=== PATIENT | female | born 1960 | race Caucasian/White ===

== ENCOUNTER 2019-02-13 07:13 | Day surgery (SDC) | payer OTHER ==
[~2019-02-13] VITALS: Ht 162.6 cm; Wt 73.5 kg
[2019-02-13] MEDS ORDERED: VITAMIN D50000 UNI1 PO (07:31)
--- NOTE | 2019-02-13 10:41 | NUR ---
02/13/19 1041 Ericka Corona SN 0840- PT ARRIVES IN PACU. RESPS EVEN AND UNLABROED. O2 SAT HIGH 90'S ON 2 L VIA NC. PT IS ASLEEP IN LEFT LATERAL POSITION WITH EYES CLOSED. PT DOES NOT AROUSE TO VERBAL STIMULIL. 0845- PT RESTING WITH EYES CLOSED. PT AROUSES TO VERBAL STIMULI AND TOUCH. RESPS EVEN AND UNLABOERD. PT REPORTS NO NAUSEA PAIN OR DIZZINESS AT THIS ITME. PT DOES REPORT THAT SHE FEELS DROWSY. PT IS PASSING FLATUS AT THIS TIME. 0855- 02 REMOVED. RESPS EVEN AND UNLABORED. O2 SAT MID TO HIGH 90S ON RA. TOLERATING WELL. PT DENIES PAIN NAUSEA DN DIZZINESS AT THIS TIME. 0900- PT EXPERIENCES PERIODS OF APNEA WHEN SHE FALLS ASLEEP, PT IS ABLE TO STIULATE HERSELF AWAKE AND BEGIN BREATHING ADEQUATELY. PT IS EDUCATED TO COUGH AND DEEP BREATHE AT THIS TIME. RESPS EVEN AND UNLABORED. 02 SAT MID TO HIGH 90S ON RA. PT DENIES PAIN NAUSEA AND DIZZINESS AT THIS TIME. 0912- PT CONTINUES TO HAVE PERIODIC BRADYPNEA. PT IS ABLE TO STIMULATE HERSELF TO BECOME MORE ALERT AND TO BREATHE ADEQUEATELY. RESPS EVEN AND UNLABORED. 02 SATS MID TO HIGH 90S ON RA. DENIES PAIN NAUSEA AND DIZZINESS AT THIS TIME. PT EDUCATED ON COUGHING AND DEEP BREAHTHING. RETURN DEMONSTRATION NOTED. 0920- PT SAT UP IN BED IN HIGH FOWLERS POSITION. TOLERATING WELL. PT PROVIDED WITH WATER REQUESTED, TOLERATING WELL. PT CONTINUES TO PASS FLATUS. PT REPORTS MILD CRAMPING, AND IS EDUCATED ON WAYS TO RELIEVE THIS. RESPS EVEN AND UNLABORED. 02 SAT HIGH 90S ON RA. DENIES PAIN NAUSEA AND DIZZINESS. 0926- PT SITTING UP ON EDGE OF BED. AT BEDSIDE. PT IS DRINKING WATER AND TOLERATING THIS WELL. PT IS ABLE TO HAVE APPROPRIATE CONVERSATIONS WITH STAFF AND AT THIS TIME. C02 MONITOR REMOVED AT THIS TIME. RESPS REMAIN EVEN AND UNLABORED. 02 SAT HIGH 90S ON RA. 0935- PT REMAINS SITTING ON EDGE OF BED, TOLERATING WELL. REPORTS NO DIZZINESS PAIN OR NAUSEA AT THIS TIME. 0943- PT GETTING DRESSED WITH AT THE BEDSIDE. TOLERATING WELL. DENIES PAIN NAUSEA OR DIZZINESS. 0950- PT OUT OF PACU. DISCHARGE INSTRUCTIONS GIVEN TO BOTH PT AND . ALL QUESTIONS ANSWERED. PT REPORTS MILD CRAMPING AT THIS TIME, AND IS EDUCATED ON IMPORTANCE OF PASSING FLATUS. TRANSFERRED TO FRONT OF HOSPTIAL VIA WC.
--- NOTE | 2019-02-13 18:36 | OR ---
[facility] [address] [place], [place] [address] Signed DATE OF OPERATION: 02/13/2019 SURGEON: Umer Marks MD PREOPERATIVE DIAGNOSES: 1. Mother with history of colon cancer in her 50s. 2. Personal history of hyperplastic colonic polyp 2013. 3. Left-sided diverticula x2. POSTOPERATIVE DIAGNOSES: 1. Minimal sigmoid diverticulosis. 2. Mild melanosis coli. PROCEDURE PERFORMED: Colonoscopy with cold biopsy x2. ESTIMATED BLOOD LOSS: None. INDICATIONS: Chidi is a 58-year-old female who presents for her followup colonoscopy. Her mother had developed colon cancer in her 50s. Chidi had a hyperplastic polyp removed in her colon in 2013. We had we saw just two diverticula when we went through her left colon. In the meantime, she says she is doing wonderful and has no lower GI complaints. I had met with Chidi in the office and I gave her a pamphlet on colonoscopy and we did review the nature of that test. She understands the risks including, but not limited to gas bloating, crampy abdominal pain, bleeding, perforation, requiring surgery, and missed diagnosis. We also discussed the need for IV conscious sedation. She had expressed understanding and wished to proceed. PROCEDURE NOTE: Chidi was taken into our endoscopy suite and placed in the left lateral decubitus position. She was given a total of 7 mg of Versed and 175 mcg of fentanyl to cover the case. A digital rectal exam was performed and this was unremarkable. The adult colonoscope was introduced and advanced under direct visualization of camera. She has a somewhat redundant and angulated sigmoid colon. On this occasion, we did see more diverticula. They were still minimal in number, but they were moderate in size. She has somewhat long redundant colon. It took just a bit to get around hepatic flexure. Consequently, we did have to use some extra Versed and fentanyl along with some abdominal compression. Nevertheless, her prep was quite excellent. We could easily see Electronically Signed By: UMER MARKS MD 02/13/19 1836 PATIENT NAME: CHIDI IBANEZ OPERATIVE REPORT DATE OF : 58 REPORT #: [id number] PHYSICIAN: UMER MARKS MD PCP: NATIVIDAD COOPER MD REPORT IS CONFIDENTIAL AND NOT TO BE RELEASED WITHOUT AUTHORIZATION [facility] [address] [place] [id number] Signed the appendiceal orifice the Crohn's foot and the ileocecal valve. We did take pictures throughout for photodocumentation. The adult colonoscope was then slowly withdrawn. No polyps noted on this occasion. The rectum was unremarkable. The scope was then retroflexed and there was no additional pathology noted above the anal canal. After this, the gas was suctioned out and the colonoscope removed. Chidi tolerated procedure overall well. If she has any recall of that procedure, she might consider propofol in the future. RECOMMENDATIONS: Chidi will follow up in my office in 7 to 14 days to review her results. We did see some tiger striping in the colon, so we took two random cold biopsies for pathologic review to evaluate for melanosis coli. Umer Marks MD ALB/MODL /[id number] cc: MD Umer Rosales MD Biana Manchik, MD Copies: PATRICIO CONKLIN MD, ANDREW L MD ~ Electronically Signed By: UMER MARKS MD 02/13/19 1836 PATIENT NAME: CHIDI IBANEZ OPERATIVE REPORT DATE OF : 58 REPORT #: [id number] PHYSICIAN: UMER MARKS MD PCP: NATIVIDAD COOPER MD REPORT IS CONFIDENTIAL AND NOT TO BE RELEASED WITHOUT AUTHORIZATION
== END 2019-02-13 09:50 | disposition home or self-care (01) ==
LOC: DS 07:13 → OPS 07:13 → DS 08:15 → OPS 08:15
PROVIDERS: Colon & Rectal Surgery
PROC: 0DBE8ZX Excision of Large Intestine, Via Natural or Artificial Opening Endoscopic, Diagnostic (ICD-10-PCS; principal; 2019-02-13 08:15)
DX: Z12.11 Encounter for screening for malignant neoplasm of colon (principal); K57.30 Diverticulosis of large intestine without perforation or abscess without bleeding; K63.89 Other specified diseases of intestine; Z86.010 Personal history of colon polyps; Z80.0 Family history of malignant neoplasm of digestive organs; Z88.2 Allergy status to sulfonamides
CPT/HCPCS: 99153; G0500; J2250; J3010; J7120

== ENCOUNTER 2020-02-02 08:38 | Emergency (ER) | payer OTHER ==
[~2020-02-02] VITALS: Ht 162.6 cm; Wt 74.4 kg
--- OUTSIDE RECORDS SUMMARY | ~2020-02-02 | XMS | Encounter Summary ---
Demographics + + + | Address | [address] | | | [place] [address] | + + + | Home Phone | | + + + | Preferred Language | Unknown | + + + | Marital Status | | + + + | Nondenominational Affiliation | 1041 | + + + | Race | Unknown | + + + | Ethnic Group | Unknown | + + + Author + + + | Author | [facility] | | | and Ashishana | + + + | Organization | [facility] | | | and Ashishana | + + + | Address | Unknown | + + + | Phone | Unavailable | + + + Support + + +---------+ + | Name | Relationship | Address | Phone | + + +---------+ + | Adria Baum | ECON | Unknown | | + + +---------+ + Care Team Providers + +------+ + | Care Zookeeper Name | Role | Phone | + +------+ + | No, Physician | PCP | Unavailable | + +------+ + Reason for Visit + + + | Reason | Comments | + + + | Financial Counseling | Estimate /prepayment | + + + Encounter Details +--------+ + + + + | Date | Type | Department | Care Team | Description | +--------+ + + + + | 10/29/ | Telephone | [facility] | Nahid Guevara, | Financial Counseling | | 2020 | | [facility] | [address] | (Estimate | | | | MEDICINE OPAL | [place] [address] | /prepayment ) | | | | [address] | [phone] | | | | | [place], [place] | | | | | | [address] | | | | | | [phone] | | | +--------+ + + + + Social History + +-------+ +--------+------+ | Tobacco Use | Types | Packs/Day | Years | Date | | | | | Used | | + +-------+ +--------+------+ | Never Smoker | | | | | + +-------+ +--------+------+ + +---+---+---+ | Smokeless Tobacco: | | | | | Never Used | | | | + +---+---+---+ + + +---------+ + | Alcohol Use | Drinks/Week | oz/Week | Comments | + + +---------+ + | Yes | | | | + + +---------+ + + + + + | Alcohol Habits | Answer | Date Recorded | + + + + | How often do you have a drink containing | Not asked | | | alcohol? | | | + + + + | How many drinks containing alcohol do you | 1 or 2 | 10/28/2019 | | have on a typical day when you are | | | | drinking? | | | + + + + | How often do you have six or more drinks on | Daily or almost daily | 10/28/2019 | | one occasion? | | | + + + + + + + | Sex Assigned at | Date Recorded | | | | + + + | Not on file | | + + + + + + + | Job Start Date | Occupation | Industry | + + + + | Not on file | Not on file | Not on file | + + + + + + + + | Travel History | Travel Start | Travel End | + + + + + + | No recent travel history available. | + + documented as of this encounter Plan of Treatment Not on filedocumented as of this encounter Visit Diagnoses Not on filedocumented in this encounter"
--- OUTSIDE RECORDS SUMMARY | ~2020-02-02 | XMS | Encounter Summary ---
Demographics + + + | Address | [address] | | | [place] [address] | + + + | Home Phone | | + + + | Preferred Language | Unknown | + + + | Marital Status | | + + + | Pentecostalism Affiliation | 1041 | + + + | Race | Unknown | + + + | Ethnic Group | Unknown | + + + Author + + + | Author | [facility] | | | and Ashishana | + + + | Organization | [facility] | | | and Ashishana | [...] Team Providers + +------+ + | Care Software Test Developer Name | Role | Phone | + [...] + + | 10/29/ | Telephone | [facility] | Nahid Guevara, | Financial Counseling | | 2020 | | [facility] | [address] | (Estimate | | | | MEDICINE OPAL | [place] [address] | /prepayment ) | | | | [address] | [phone] | | | | | [place], [place] | | | | | | [address] | | | | | | [phone] | | | +--------+ + + + [...]
--- OUTSIDE RECORDS SUMMARY | ~2020-02-02 | XMS | Encounter Summary ---
Demographics + + + | Address | [address] | | | [place] [address] | + + + | Home Phone | | + + + | Preferred Language | Unknown | + + + | Marital Status | | + + + | Anabaptist Affiliation | 1041 | + + + | Race | Unknown | + + + | Ethnic Group | Unknown | + + + Author + + + | Author | [facility] | | | and Ashishana | + + + | Organization | [facility] | | | and Ashishana [...] Team Providers + +------+ + | Care Hairpiece Stylist Name | Role | Phone | + +------+ + | No, Physician | PCP | Unavailable | + +------+ + Reason for Visit Evaluate & Treat (Routine) + +--------+ + + + + | Status | Reason | Specialty | Diagnoses / | Referred By | Referred To | | | | | Procedures | Contact | Contact | + +--------+ + + + + | Authorized | | Orthopedic | Diagnoses | Chucky | Ismael, | | | | Surgery | | DO Tayo | Nahid Fuentes MD | | | | | [place], | [address] | [address] | | | | | right hand | [address] | [place], | | | | | | [address] | [place] [address] | | | | | | [place], | Phone: | | | | | | [place] | [phone] | | | | | | [address] | Fax: | | | | | | Phone: | [phone] | | | | | | [phone] | | | | | | | Fax: | | | | | | | [phone] | | + +--------+ + + + + Encounter Details +--------+---------+ + + + | Date | Type | Department | Care Team | Description | +--------+---------+ + + + | 11/17/ | Office | [facility] | Nahid Guevara, | Ravi | | 2020 | Visit | [facility] | [address] | contracture (Primary | | | | MEDICINE OPAL | [place] [address] | Dx) | | | | [address] | [phone] | | | | | [place] | | | | | | [address] | | | | | | [phone] | | | +--------+---------+ + + + Social History + +-------+ [...] + + documented as of this encounter Last Filed Vital Signs + + + + + | Vital Sign | Reading | Time Taken | Comments | + + + + + | Blood Pressure | 124/60 | 11/17/2019 10:49 AM | | | | | PST | | + + + + + | Pulse | 78 | 11/17/2019 10:49 AM | | | | | PST | | + + + + + | Temperature | - | - | | + + + + + | Respiratory Rate | 16 | 11/17/2019 10:49 AM | | | | | PST | | + + + + + | Oxygen Saturation | - | - | | + + + + + | Inhaled Oxygen | - | - | | | Concentration | | | | + + + + + | Weight | 74.8 kg (165 lb) | 11/17/2019 10:49 AM | | | | | PST | | + + + + + | Height | 162.6 cm (5' 4") | 11/17/2019 10:49 AM | | | | | PST | | + + + + + | Body Mass Index | 28.32 | 11/17/2019 10:49 AM | | | | | PST | | + + + + + documented in this encounter Progress Notes Nahid Guevara MD - 11/17/2019 10:45 AM PSTFormatting of this note might be different fro m the original. [facility]: Orthopedic Surgery Patient Name:Skylar Baum AGE: 59 y.o. :1960 CHIEF COMPLAINT: postop HPI HISTORY OF PRESENT ILLNESS Patient overall doing well. No complications noted. No signs of infection. 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 Authorizing Provider Cholecalciferol (VITAMIN D3 PO) Take by mouth. Historical Provider, CINNAMON PO Take by mouth. Historical Provider, HYDROcodone-acetaminophen (NORCO) 5-325 mg per tablet Take 1 tablet by mouth every 4 hours as needed. 11/04/19 Nahid Guevara MD HYDROcodone-acetaminophen (NORCO) 5-325 mg per tablet Take 1 tablet by mouth every 4 hours as needed. 11/04/19 Nahid Guevara MD ondansetron (ZOFRAN ODT) 4 mg disintegrating tablet Take 1 tablet by mouth every 8 hours as needed for Nausea. 11/04/19 Nahid Guevara MD ondansetron (ZOFRAN ODT) 4 mg disintegrating tablet Take 1 tablet by mouth every 8 hours as needed for Nausea. 11/04/19 Nahid Guevara MD No family history on file. Social History Socioeconomic History Marital status: Spouse name: Not on file Number of children: Not on file Years of education: Not on file Highest education level: Not on file Occupational History Not on file Social Needs Financial resource strain: Not on file Food insecurity: Worry: Not on file Inability: Not on file Transportation needs: Medical: Not on file Non-medical: Not on file Tobacco Use Smoking status: Never Smoker Smokeless tobacco: Never Used Substance and Sexual Activity Alcohol use: Yes Drinks per session: 1 or 2 Binge frequency: Daily or almost daily Drug use: Never Sexual activity: Not on file Lifestyle Physical activity: Days per week: Not on file Minutes per session: Not on file Stress: Not on file Relationships Social connections: Talks on phone: Not on file Gets together: Not on file Attends mormon service: Not on file Active member of club or organization: Not on file Attends meetings of clubs or organizations: Not on file Relationship status: Not on file Intimate partner violence: Fear of current or ex partner: Not on file Emotionally abused: Not on file Physically abused: Not on file Forced sexual activity: Not on file Other Topics Concern Not on file Social History Narrative Not on file PHYSICAL EXAM Vital Signs: BP 124/60 | Pulse 78 | Resp 16 | Ht 1.626 m (5' 4") | Wt 74.8 kg (165 lb) | BMI 28.32 kg/m Physical Exam Ortho Exam Wound healed Neurovascularly intact, Motor and sensation grossly intact Brisk cap refill 2+ pulses No signs of complication PROBLEM LIST Encounter Diagnosis Name Primary? Dupuytren contracture Yes ASSESSMENT & PLAN Gradual return to activity Scar tissue massage All questions answered Return in 2-3 months @[email or web address]@ Primary Care Physician: No Physician on file Nahid Guevara MD This document has been prepared with [email or web address] voice recognition system. The possibility of "s ound alike" clearing supervisor errors, and additions, or deletions may occur. If there is any que stion with respect to clarity of the message being conveyed, please contact me directly for clarification. documented in this en counter Plan of Treatment Not on filedocumented as of this encounter Visit Diagnoses + + | Diagnosis | + + | Dupuytren contracture - Primary Contracture of palmar fascia | + + documented in this encounter
--- OUTSIDE RECORDS SUMMARY | ~2020-02-02 | XMS | Encounter Summary ---
Demographics + + + | Address | [address] | | | [place] [address] | + + + | Home Phone | | + + + | Preferred Language | Unknown | + + + | Marital Status | | + + + | Congregation Affiliation | 1041 | + + + | Race | Unknown | + + + | Ethnic Group | Unknown | + + + Author + + + | Author | [facility] | | | and Ashishana | + + + | Organization | [facility] | | | and Ashishana [...] Team Providers + +------+ + | Care Grooving Machine Operator Name | Role | Phone | + +------+ + PCP | Unavailable | + +------+ + Encounter Details +--------+ + + + + | Date | Type | Department | Care Team | Description | +--------+ + + + + | 01/25/ | Hospital | [facility] | | | | 1992 - | Encounter | [facility] | | | | | | [facility] [address] | | | | 01/28/ | | [place], | | | | 1992 | | [place] [address] | | | | | | [phone] | | | +--------+ + + + + Social History + +-------+ +--------+------+ | Tobacco Use | Types | Packs/Day | Years | Date | | | | | Used | | + +-------+ +--------+------+ | Never Assessed | | | | | + +-------+ +--------+------+ + + + | Sex Assigned at [...]
--- OUTSIDE RECORDS SUMMARY | ~2020-02-02 | XMS | Encounter Summary ---
Demographics + + + | Address | [address] | | | [place] [address] | + + + | Home Phone | | + + + | Preferred Language | Unknown | + + + | Marital Status | | + + + | Nondenominational Affiliation | 1041 | + + + | Race | Unknown | + + + | Ethnic Group | Unknown | + + + Author + + + | Author | [facility] | | | and Ashishana | + + + | Organization | [facility] | | | and Ashishana [...] Team Providers + +------+ + | Care Atg Architect Name | Role | Phone | + +------+ + | No, Physician | PCP | Unavailable | + +------+ + Reason for Visit Auth/Cert +--------+--------+ + + + + | Status | Reason | Specialty | Diagnoses / | Referred By | Referred To | | | | | Procedures | Contact | Contact | +--------+--------+ + + + + | | | | Diagnoses | | Ismael | | | | | Ravi | | Nahid Fuentes MD | | | | | contracture | | [address] | | | | | Procedures | | [facility], | | | | | [place] | | [place] [address] | | | | | FASCIECTOMY | | Phone: | | | | | RIGHT INDEX | | [phone] | | | | | AND RING | | Fax: | | | | | FINGER | | [phone] | | | | | DUPUYTRENS | | | | | | | FASCIECTOMY | | | +--------+--------+ + + + + Encounter Details +--------+ + + + + | Date | Type | Department | Care Team | Description | +--------+ + + + + | 11/04/ | Hospital | [facility] | | Ravi | | 2020 | [facility] | | contracture | | | | OPAL ASC INTRA | | | | | | [address] | | | | | | [place], [place] | | | | | | [address] | | | | | | [phone] | | | +--------+ + + + [...] + + + | Blood Pressure | 126/76 | 11/04/2019 2:20 PM | | | | | PST | | + + + + + | Pulse | 48 | 11/04/2019 2:20 PM | | | | | PST | | + + + + + | Temperature | 36.3 C (97.3 F) | 11/04/2019 2:00 PM | | | | | PST | | + + + + + | Respiratory Rate | 16 | 11/04/2019 2:00 PM | | | | | PST | | + + + + + | Oxygen Saturation | 97% | 11/04/2019 2:20 PM | | | | | PST | | + + + + + | Inhaled Oxygen | - | - | | | Concentration | | | | + + + + + | Weight | 75.1 kg (165 lb 9.6 | 11/04/2019 1:02 PM | | | | oz) | PST | | + + + + + | Height | 162.6 cm (5' 4") | 11/04/2019 1:02 PM | | | | | PST | | + + + + + | Body Mass Index | 28.43 | 11/04/2019 1:02 PM | | | | | PST | | + + + + + documented in this encounter Discharge Summaries Nahid Guevara MD - 11/04/2019 12:30 PM [facility] Same Day Surgery: Brief Post Op Discharge Note Post Procedure Discharge Note; See Operative Note for details Skylar Baum Age/Gender 59 y.o. female Location [facility] OPAL ASC INTRA OP Attending No att. providers found Hosp Day # 0 PCP No Physician on file Discharge Date: 11/04/2019 Hospital Problem List: Principal Problem: Dupuytren contracture Final Diagnosis: [facility] OP[facility] ASC Pt. Name/Age/: Skylar Baum 59 y.o. 1960 Med. Record Number: [id number] Date of admission: 11/04/2019 Date of Operation/Procedure: 11/04/2019 Pre-operative Diagnosis: Right index finger Dupuytren's disease Right ring finger Dupuytren's disease Post-operative Diagnosis: same Procedure(s): 1. Right index finger fasciectomy, CPT 98734 2. Right ring finger fasciectomy, CPT 87907 Surgeon: Nahid Guevara MD Him Specialists(s): None Anesthesia:, General mask inhalational anesthesia and IV regional Estimated Blood Loss: Minimal Other: Not applicable Indications: See pre-operative history and physical Findings: As above Complications: None Description of Procedure: See op note Condition: stable Discharge Meds: Resume pre-admit medications without exceptions or additions See Orders Discharge Instructions: See separate Discharge Instruction document; provided to patient/f amily See discharge orders Disposition: home Follow-Up: No follow-up provider specified. Condition at Discharge: She will be discharged when she is ready per nursing protocol. See nursing notes regarding actual condition at discharge. Nahid Guevara MD 2:09 PM; 11/04/2019 cc: documented in this en counter Discharge Instructions Instructions Kelsea Monroy RN - 11/04/2019Nahid Guevara MD Postoperative Instru ctions As you recover from surgery here are instructions to aid the healing process and keep you s afe. Diet Regular diet, or your diet specified by your primary care provider. Begin with paul ar liquids and advance to solids as you tolerate. No alcoholic beverages on the day of surge ry. Also, please AVOID smoking as this can significantly delay the healing process. Activity Keep the operative extremity above the level of your heart for the next 5 days . Please avoid shoulder slings as these place your hand/wrist below the level of your heart BLOCK MAY LAST AROUND 10-12 HOURS; USE SLING UNTIL ELBOW CONTROL RETURNS THEN DISCARD Dressing/Surgery site Please keep your dressing clean and dry. You may remove your dressing in 3 days (Sunday). You may shower tomorrow but please keep your wound/dressing covered and dry Pain medicine Take pain medicine PRN or as needed. Try to wean yourself gradually off pain medicine over several days. Do NOT drink alcohol or take sleeping medicines while on narcotics. You should take pain medicine with food to avoid nausea. In addition, pain med icine may cause constipation. Please drink plenty of fluids and take a laxative of your low ce (over the counter) as needed. After surgery Slight swelling, pain and some bruising may occur after surgery. Please contact my office if any of the following occur: sustained temperature over 101.5?F, excessi ve bleeding, rapidly increasing numbness, inability to urinate within 8 hours, progressively increasing pain not relieved by pain medicines, signs of a wound infection (increased redne ss, swelling, pus drainage), or excessive swelling/tightness. Office appointment Please return to my office in 10-14 days for a dressing change. Call with any questions or to schedule/re-schedule an appointment. I look forward to seeing you. Provision for after-hours and emergency care: If you have an emergency such as chest pain or shortness of breath please call . If you need the doctor after hours or on the weekends, please refer to the phone number bel ow. For [facility] offices located on [address] [facility] and on [address] [place] [address] please call . This will take you to an answering service, who will then get you in contact with a medical professional. documented in this encounter Medications at Time of Discharge + + + +---------+ + + | Medication | Sig | Dispensed | Refills | Start | End Date | | | | | | Date | | + + + +---------+ + + | Cholecalciferol | Take by mouth. | | 0 | | | | (VITAMIN D3 PO) | | | | | | + + + +---------+ + + | CINNAMON PO | Take by mouth. | | 0 | | | + + + +---------+ + + | | Take 1 tablet by | 10 | 0 | 11/04/19 | | | HYDROcodone-acetamin | mouth every 4 hours | tablet | | 20 | | | ophen (NORCO) 5-325 | as needed. | | | | | | mg per tablet | | | | | | + + + +---------+ + + | | Take 1 tablet by | 10 | 0 | 11/04/20 | | | HYDROcodone-acetamin | mouth every 4 hours | tablet | | 20 | | | ophen (NORCO) 5-325 | as needed. | | | | | | mg per tablet | | | | | | + + + +---------+ + + | ondansetron | Take 1 tablet by | 24 | 0 | 20 | | | (ZOFRAN ODT) 4 mg | mouth every 8 hours | tablet | | 20 | | | disintegrating | as needed for | | | | | | tablet | Nausea. | | | | | + + + +---------+ + + | ondansetron | Take 1 tablet by | 24 | 0 | //20 | | | (ZOFRAN ODT) 4 mg | mouth every 8 hours | tablet | | 20 | | | disintegrating | as needed for | | | | | | tablet | Nausea. | | | | | + + + +---------+ + + documented as of this encounter Progress Notes Kelsea Monroy RN - 11/04/2019 2:24 PM PSTPrescription Rx and discharge information given to , at bedside, all questions answered. documented in th is encounter Plan of Treatment + +---------+--------+ + + | Name | Type | Priori | Associated Diagnoses | Date/Time | | | | ty | | | + +---------+--------+ + + | STORED IMAGE | Imaging | Routin | | 11/04/2019 3:41 PM | | ANESTHESIA | | e | | PST | + +---------+--------+ + + + +---------+--------+ + + | Name | Type | Priori | Associated Diagnoses | Order Schedule | | | | ty | | | + +---------+--------+ + + | STORED IMAGE | Imaging | Routin | | One time imaging One | | ANESTHESIA | | e | | time imaging for 1 | | | | | | Occurrences starting | | | | | | 11/04/2019 until | | | | | | 11/04/2019 | + +---------+--------+ + + documented as of this encounter Procedures + +--------+ + + + | Procedure Name | Priori | Date/Time | Associated Diagnosis | Comments | | | ty | | | | + +--------+ + + + | RELEASE TENDON | | 11/04/2019 | Dupuytren | | | DEQUERVAINS | | 1:27 PM | contracture | | | | | PST | | | + +--------+ + + + +---+--------+ | | Case | | | Notes | | | | | | RIGHT | | | INDEX | | | AND | | | RING | | | FINGER | | | | | | DUPUYT | | | RENS | | | FASCIE | | | CTOMY | +---+--------+ documented in this encounter Visit Diagnoses + + | Diagnosis | + + | Dupuytren contracture Contracture of palmar fascia | + + documented in this encounter Admitting Diagnoses + + | Diagnosis | + + | Dupuytren contracture Contracture of palmar fascia | + + documented in this encounter Administered Medications + +--------+---------+------+------+------+ | Medication Order | MAR | Action | Dose | Rate | Site | | | Action | Date | | | | + +--------+---------+------+------+------+ + +---+ | fentaNYL (PF) 50 mcg/mL | | | injection Starting 11/04/19 | | | at 1318, For 1 dose, Naseem, | | | Antionette: félixt override, | | + +---+ | | | + +---+ + +-------+ +--------+---+---+ | fentaNYL (PF) injection 50-100 | Given | 11/04/19 | 50 mcg | | | | mcg 50-100 mcg, Intravenous, | | 20 1:20 | | | | | ONCE, 11/04/19 at 1315, For 1 | | PM PST | | | | | dose, Pre-op | | | | | | + +-------+ +--------+---+---+ +---+---+ | | | +---+---+ + +---------+ +---+ +---+ | lactated ringers (LR) infusion | New Bag | 11/04/19 | | 30 mL/hr | | | at 10-100 mL/hr, Intravenous, | | 20 1:15 | | | | | CONTINUOUS, Starting 11/04/19 | | PM PST | | | | | at 1315, TKO., Pre-op | | | | | | + +---------+ +---+ +---+ +---+---+ | | | +---+---+ + +-------+ +---------+---+ + | lidocaine (PF) 1% injection 0.5 | Given | 11/04/19 | 0.5 mLs | | Arm-Left | | mL 0.5 mL, Intradermal, ONCE, | | 20 1:15 | | | Lower | | 11/04/19 at 1315, For 1 dose, | | PM PST | | | | | For Peripheral IV start, Pre-op | | | | | | + +-------+ +---------+---+ + +---+---+ | | | +---+---+ + +-------+ +------+---+---+ | midazolam (VERSED) 1 mg/mL | Given | 11/04/19 | 1 mg | | | | injection 1-2 mg 1-2 mg, | | 20 1:20 | | | | | Intravenous, ONCE, 11/04/19 at | | PM PST | | | | | 1315, For 1 dose, Pre-op | | | | | | + +-------+ +------+---+---+ + +---+ | | | + +---+ | midazolam (VERSED) 1 mg/mL | | | injection Starting 11/04/19 | | | at 1318, For 1 dose, Naseem, | | | Antionette: na paulino, | | + +---+ | | | + +---+ documented in this encounter
--- OUTSIDE RECORDS SUMMARY | ~2020-02-02 | XMS | Encounter Summary ---
Demographics + + + | Address | [address] | | | [place] [address] | + + + | Home Phone | | + + + | Preferred Language | Unknown | + + + | Marital Status | | + + + | Scientologist Affiliation | 1041 | + + + | Race | Unknown | + + + | Ethnic Group | Unknown | + + + Author + + + | Author | [facility] | | | and Ashishana | + + + | Organization | [facility] | | | and Ashishana [...] Team Providers + +------+ + | Care Zigzag Machine Operator Name | Role | Phone | + +------+ + | No, Physician | PCP | Unavailable | + +------+ + Encounter Details +--------+ + + + + | Date | Type | Department | Care Team | Description | +--------+ + + + + | 10/28/ | Preadmit | [facility] | | | | 2019 | Visit | [facility] | | | | | | [facility]AL [facility] | | | | | | [facility] | | | | | | [address] | | | | | | [place] | | | | | | [address] | | | | | | [phone] | | | +--------+ + + + [...] + + + | Blood Pressure | - | - | | + + + + + | Pulse | - | - | | + + + + + | Temperature | - | - | | + + + + + | Respiratory Rate | - | - | | + + + + + | Oxygen Saturation | - | - | | + + + + + | Inhaled Oxygen | - | - | | | Concentration | | | | + + + + + | Weight | 72.6 kg (160 lb) | 10/28/2019 10:21 AM | | | | | PST | | + + + + + | Height | 162.6 cm (5' 4") | 10/28/2019 10:21 AM | | | | | PST | | + + + + + | Body Mass Index | 27.46 | 10/28/2019 10:21 AM | | | | | PST | | + + + + + documented in this encounter Plan of Treatment Not on filedocumented as of this encounter Visit Diagnoses Not on filedocumented in this encounter
--- OUTSIDE RECORDS SUMMARY | ~2020-02-02 | XMS | Encounter Summary ---
Demographics + + + | Address | [address] | | | [place] [address] | + + + | Home Phone | | + + + | Preferred Language | Unknown | + + + | Marital Status | | + + + | Presybeterian Affiliation | 1041 | + + + | Race | Unknown | + + + | Ethnic Group | Unknown | + + + Author + + + | Author | [facility] | | | and Ashishana | + + + | Organization | [facility] | | | and [...] Team Providers + +------+ + | Care Emt I/99 Name | Role | Phone | + +------+ + PCP | Unavailable | + +------+ + Encounter Details +--------+ + + + + | Date | Type | Department | Care Team | Description | +--------+ + + + + | 01/25/ | Hospital | [facility] | | | | 1992 - | Encounter | [facility] | | | | | | [facility] [address] | | | | 01/28/ | | [place], | | | | 1993 | | [place] [address] | | | | | | [phone] | | | +--------+ + + + [...]
--- OUTSIDE RECORDS SUMMARY | ~2020-02-02 | XMS | Encounter Summary ---
Demographics + + + | Address | [address] | | | [place] [address] | + + + | Home Phone | | + + + | Preferred Language | Unknown | + + + | Marital Status | | + + + | Scientology Affiliation | 1041 | + + + | Race | Unknown | + + + | Ethnic Group | Unknown | + + + Author + + + | Author | [facility] | | | and Ashishana | + + + | Organization | [facility] | | | and Ashishana | [...] Team Providers + +------+ + | Care Plastic Roller Name | Role | Phone | + [...] right hand | [address] | [place], | | | | | | [address] | [place] [address] | | | | | | [place], | Phone: | | | | | | [place] | [phone] | | | | | | [address] | Fax: | | | | | | Phone: | [phone] | | | | | | [phone] | | | | | | | Fax: | | | | | | | [phone] | | + +--------+ + + + + Encounter Details +--------+---------+ + + + | Date | Type | Department | Care Team | Description | +--------+---------+ + + + | 11/17/ | Office | [facility] | Nahid Guevara, | Ravi | | 2020 | Visit | [facility] | [address] | contracture (Primary | | | | MEDICINE OPAL | [place] [address] | Dx) | | | | [address] | [phone] | | | | | [place] | | | | | | [address] | | | | | | [phone] | | | +--------+---------+ + + + [...] might be different fro m the original. [facility]: Orthopedic Surgery Patient Name:Skylar Baum [...] FINGER DUPUYTRENS FASCIECTOMY; Surgeon: Raheem Moya; [place] [facility] [place] Allergies Allergen Reactions Uncoded Nonscreenable Allergen Rash [...] file Gets together: Not on file Attends protestant service: Not on file Active member of [...] MD This document has been prepared with [employer] voice recognition system. The possibility of "s ound alike" oral surgeon errors, and additions, or deletions may occur. [...]
--- OUTSIDE RECORDS SUMMARY | ~2020-02-02 | XMS | Encounter Summary ---
Demographics + + + | Address | [address] | | | [place] [address] | + + + | Home Phone | | + + + | Preferred Language | Unknown | + + + | Marital Status | | + + + | Spiritism Affiliation | 1041 | + + + | Race | Unknown | + + + | Ethnic Group | Unknown | + + + Author + + + | Author | [facility] | | | and Ashishana | + + + | Organization | [facility] | | | and Ashishana | [...] Team Providers + +------+ + | Care Banking Representative Name | Role | Phone | + +------+ + | No, Physician | PCP | Unavailable | + +------+ + Reason for Visit + + + | Reason | Comments | + + + | Hand Pain | right hand | + + + Evaluate & Treat (Routine) + +--------+ + + + + | Status | Reason | Specialty | Diagnoses / | Referred By | Referred To | | | | | Procedures | Contact | Contact | + +--------+ + + + + | Authorized | | Orthopedic | Diagnoses | Chucky, | Ismael, | | | | Surgery | | DO Tayo | Nahid Fuentes MD | | | | | Contracture, | [address] | [address] | | | | | right hand | [address] | [place], | | | | | | [address] | [place] [address] | | | | | | [place], | Phone: | | | | | | [place] | [phone] | | | | | | [address] | Fax: | | | | | | Phone: | [phone] | | | | | | [phone] | | | | | | | Fax: | | | | | | | [phone] | | + +--------+ + + + + Encounter Details +--------+---------+ + + + | Date | Type | Department | Care Team | Description | +--------+---------+ + + + | 09/18/ | Office | [facility] | Nahid Guevara, | Ravi | | 2019 | Visit | [facility] | [address] [facility] | contracture (Primary | | | | MEDICINE OPAL | [place] [address] | Dx) | | | | [address] [facility] | [phone] | | | | | [place], [place] | | | | | | [address] | | | | | | [phone] | | | +--------+---------+ + + + [...] + + +---------+ + + + + | Sex Assigned [...] + + + | Blood Pressure | 124/68 | 09/18/2019 2:22 PM | | | | | PST | | + + + + + | Pulse | 74 | 09/18/2019 2:22 PM | | | | | PST | | + + + + + | Temperature | - | - | | + + + + + | Respiratory Rate | 16 | 09/18/2019 2:22 PM | | | | | PST | | + + + + + | Oxygen Saturation | - | - | | + + + + + | Inhaled Oxygen | - | - | | | Concentration | | | | + + + + + | Weight | 72.6 kg (160 lb) | 09/18/2019 2:22 PM | | | | | PST | | + + + + + | Height | 162.6 cm (5' 4") | 09/18/2019 2:22 PM | | | | | PST | | + + + + + | Body Mass Index | 27.46 | 09/18/2019 2:22 PM | | | | | PST | | + + + + + documented in this encounter Progress Notes Nahid Guevara MD - 09/18/2019 2:20 PM PSTFormatting of this note might be different fro m the original. [facility]: Orthopedic Surgery Patient Name:Skylar Baum AGE: 59 y.o. :1960 CHIEF COMPLAINT: Hand Pain (right hand ) Right finger contractures HPI HISTORY OF PRESENT ILLNESS Ms. Baum is a pleasant 59-year-old female who has noticed insidious onset of right inde x and ring finger contractures more significantly at the PIP joints. There appeared to be sm all retrovascular cord going radially on both sides and that are causing these contractures. No foot disease noted. No previous family history noted. The problem is constant and of mod erate severity, and there is mild associated swelling. No significant exacerbating or reliev ing factors. No previous treatments. REVIEW OF SYSTEMS, comprehensive review of systems performed and is negative except for not ed above and below Review of Systems History reviewed. No pertinent past medical history. Past Surgical History: Procedure Laterality Date APPENDECTOMY SECTION Allergies Allergen Reactions Uncoded Nonscreenable Allergen Rash Per patient, sulpher, rash reaction Prior to Admission medications Not on File History reviewed. No pertinent family history. Social History Socioeconomic History Marital status: Spouse [...] Substance and Sexual Activity Alcohol use: Yes Drug use: Never Sexual activity: Not on file Lifestyle Physical activity: Days per week: Not on file Minutes per session: Not on file Stress: Not on file Relationships Social connections: Talks on phone: Not on file Gets together: Not on file Attends yazdanism service: Not on file Active member of [...] on file PHYSICAL EXAM Vital Signs: BP 124/68 | Pulse 74 | Resp 16 | Ht 1.626 m (5' 4") | Wt 72.6 kg (160 lb) | BMI 27.46 kg/m Physical Exam Well developed well nourished patient No acute distress Alert and oriented x3 Head and neck are normal Oropharynx is clear Gaze is conjugate Breathing is unlabored Heart is regular rate and rhythm Ortho Exam Skin is clean, dry and intact Brisk cap refill 2+ pulses No deficits noted Motor and sensation are intact No masses and no lymphadenopathy Normal sweat patterns No hyperreflexia Negative henry's maneuver Compartments are soft and compressible There is retrovascular cords noted to the index and ring finger causing about a 40-degree P IP joint contracture to the index finger and a 55-degree contracture to the ring finger PROBLEM LIST Encounter Diagnosis Name Primary? Dupuytren contracture Yes ASSESSMENT & PLAN Conservative and operative options reviewed. The patient would like to move forward with martinez rgery understanding all options available. Anesthesia risks and benefits have been reviewed as well. Risks and benefits of right index and ring finger Dupuytren's fasciectomy surgery have been reviewed in detail. Healing rates have been reviewed in detail as well as what to expect po stoperatively. We will move forward with surgery. Risks include but are not limited to bleeding, infection, need for reoperation, damage to n erves/blood vessels/tendons, chronic deformity and pain. All questions have been answered. R ehabilitation protocols reviewed. Success rates and recurrence rates have been discussed. No guarantees have been given. Documented by Carmen. @[email or web address]@ Primary Care Physician: No Physician on file Nahid Guevara MD documented in this en counter Plan of Treatment Not on filedocumented as of this encounter Visit Diagnoses + + | Diagnosis | + + | Dupuytren contracture - Primary Contracture of palmar fascia | + + documented in this encounter
--- OUTSIDE RECORDS SUMMARY | ~2020-02-02 | XMS | Encounter Summary ---
Demographics + + + | Address | [address] | | | [place] [address] | + + + | Home Phone | | + + + | Preferred Language | Unknown | + + + | Marital Status | | + + + | Temple Affiliation | 1041 | + + + | Race | Unknown | + + + | Ethnic Group | Unknown | + + + Author + + + | Author | [facility] | | | and Ashishana | + + + | Organization | [facility] | | | and Ashishana [...] Team Providers + +------+ + | Care Orchid Hand Name | Role | Phone | + [...] right hand | [address] | [place], | | | | | | [address] | [place] [address] | | | | | | [place], | Phone: | | | | | | [place] | [phone] | | | | | | [address] | Fax: | | | | | | Phone: | [phone] | | | | | | [phone] | | | | | | | Fax: | | | | | | | [phone] | | + +--------+ + + + + Encounter Details +--------+---------+ + + + | Date | Type | Department | Care Team | Description | +--------+---------+ + + + | 09/18/ | Office | [facility] | Nahid Guevara, | Ravi | | 2019 | Visit | [facility] | [address] [facility] | contracture (Primary | | | | MEDICINE OPAL | [place] [address] | Dx) | | | | [address] [facility] | [phone] | | | | | [place], [place] | | | | | | [address] | | | | | | [phone] | | | +--------+---------+ + + + [...] might be different fro m the original. [facility]: Orthopedic Surgery Patient Name:Skylar Baum [...] file Gets together: Not on file Attends denominational service: Not on file Active member of [...]
--- OUTSIDE RECORDS SUMMARY | ~2020-02-02 | XMS | Clinical Summary ---
Demographics + + + | Address | [address] | | | [place] [address] | + + + | Home Phone | | + + + | Preferred Language | Unknown | + + + | Marital Status | | + + + | Voodoo Affiliation | 1041 | + + + | Race | Unknown | + + + | Ethnic Group | Unknown | + + + Author + + + | Author | [facility] | | | and Ashishana | + + + | Organization | [facility] | | | and Ashishana [...] Team Providers + +------+ + | Care Creative Developer Name | Role | Phone | + +------+ + | No, Physician | PCP | Unavailable | + +------+ + Allergies + + + + + + | Active Allergy | Reactions | Severity | Noted | Comments | | | | | Date | | + + + + + + | Uncoded | Rash | Low | 12/12/20 | Per patient, | | Nonscreenable | | | 19 | sulfa, rash reaction | | Allergen | | | | | + + + + + + Medications + + + +---------+------+------+-------+ | Medication | Sig | Dispensed | Refills | Star | End | Statu | | | | | | t | Date | s | | | | | | Date | | | + + + +---------+------+------+-------+ | CINNAMON PO | Take by mouth. | | 0 | | | Activ | | | | | | | | e | + + + +---------+------+------+-------+ | Cholecalciferol | Take by mouth. | | 0 | | | Activ | | (VITAMIN D3 PO) | | | | | | e | + + + +---------+------+------+-------+ | | Take 1 tablet by | 10 | 0 | 01/2 | | Activ | | HYDROcodone-acetamin | mouth every 4 hours | tablet | | 8/20 | | e | | ophen (NORCO) 5-325 | as needed. | | | 20 | | | | mg per tablet | | | | | | | + + + +---------+------+------+-------+ | ondansetron | Take 1 tablet by | 24 | 0 | 01/2 | | Activ | | (ZOFRAN ODT) 4 mg | mouth every 8 hours | tablet | | 8/20 | | e | | disintegrating | as needed for | | | 20 | | | | tablet | Nausea. | | | | | | + + + +---------+------+------+-------+ | | Take 1 tablet by | 10 | 0 | 01/2 | | Activ | | HYDROcodone-acetamin | mouth every 4 hours | tablet | | 8/20 | | e | | ophen (NORCO) 5-325 | as needed. | | | 20 | | | | mg per tablet | | | | | | | + + + +---------+------+------+-------+ | ondansetron | Take 1 tablet by | 24 | 0 | 01/2 | | Activ | | (ZOFRAN ODT) 4 mg | mouth every 8 hours | tablet | | 8/20 | | e | | disintegrating | as needed for | | | 20 | | | | tablet | Nausea. | | | | | | + + + +---------+------+------+-------+ Active Problems + + + | Problem | Noted Date | + + + | Ravi wheelerure | 09/18/2019 | + + + + + | Overview: Added automatically from request for surgery | | [id number] | + + Encounters +--------+ + + + + | Date | Type | Specialty | Care Team | Description | +--------+ + + + + | 11/17/ | Office | Orthopedic Surgery | Nahid Guevara, | Dupuytren | | 2019 | Visit | | MD | contracture (Primary | | | | | | Dx) | +--------+ + + + + | 11/04/ | Surgery | | Nahid Guevara, | RIGHT INDEX AND RING | | 2019 | | | MD | FINGER DUPUYTRENS | | | | | | FASCIECTOMY | +--------+ + + + + | 11/04/ | Anesthesia | | Parker Jordan MD | | | 2019 | Event | | | | +--------+ + + + + | 11/04/ | Hospital | | Parker Jordan MD | | | 2019 | Encounter | | | | +--------+ + + + + | 11/04/ | Hospital | | | Dupuytren | | 2020 | Encounter | | | contracture | +--------+ + + + + from Last 3 Months Social History + +-------+ +--------+------+ | Tobacco [...] recent travel history available. | + + Last Filed Vital Signs + + + [...] | | + + + + + Plan of Treatment + + + + + | Health Maintenance | Due Date | Last Done | Comments | + + + + + | Hepatitis C | | | | | Screening | 9 | | | + + + + + | Vaccine: | | | | | Dtap/Tdap/Td (1 - | 0 | | | | Tdap) | | | | + + + + + | Cervical Cancer | | | | | Screening (Pap) | 9 | | | + + + + + | Breast Cancer | | | | | Screening | 4 | | | + + + + + | Vaccine: Zoster (2 | | 11/27/2018, 09/26/2018 | | | of 3) | 9 | | | + + + + + | Colorectal Cancer | | 10/08/2018 | | | Screening | 9 | | | | (Colonoscopy) | | | | + + + + + | Vaccine: Influenza | Completed | 07/28/2019 | | + + + + + Procedures + +--------+ + + + | Procedure Name | Priori | Date/Time | Associated Diagnosis | Comments | | | ty | | | | + +--------+ + + + | ANE NERVE BLOCK | Routin | 11/04/2019 | | Results for this | | CATHETER NOTE | e | 1:32 PM | | procedure are in the | | | | PST | | results section. | + +--------+ + + + | [...] FASCIE | | | CTOMY | +---+--------+ from Last 3 Months Results Nerve Block (11/04/2019 1:32 PM PST) + + + | Narrative | Performed At | + + + | Parker Jordan MD 11/04/2019 1:44 PM Perineural Procedure | | | Note 11/04/2019 1:29 PM Nerve block: axillary-brachial plexus | | | Laterality: right Continuous block with catheter: No Provider | | | requested procedure: Dr. Guevara Indication: postoperative analgesia | | | Preprocedure check: patient identified, procedure and rescue | | | equipment checked, preevaluation including airway assessment | | | complete, risks/benefits discussed, consent obtained, timeout | | | performed, reassessment prior to procedure and monitors applied | | | Preparation: chlorhexidine/isopropyl alcohol, 1% lidocaine | | | infiltration Introducer used: no Local anesthetic infiltration | | | volume in ml: 1 mL Technique: ultrasound Radiology image stored in | | | patient's chart: ultrasound Needle: echogenic, non-insulated and | | | short-bevel Needle size: 22 g Needle length: 2 in Medication | | | administered through: needle and incremental injection Negative | | | findings: no paresthesia, no blood aspirated and no air aspirated | | | Total volume of local anesthetic solution administered: 50 mL | | | Attempts: 1 Ease of procedure: easy Dressing: band-aid Comments: | | | Ultrasound image was stored on patient's file using the [facility] | | | system. Ultrasound was used to visualized the ULTRASOUND ENHANCED | | | NEEDLE, nerves and safely place the local anesthetic. Patient | | | was sterile prep clean technique. Local anesthetic Lidocaine 1% | | | plain infiltrated at site. Ultrasound identified the Axillary A. and | | | the nerves of the Brachial Plexus. Lateral approach IP short axis. | | | The Regional needle tip was advanced under visualization. | | | Confirmation of the placement of local anesthetic around the nerves | | | (median, radial, ulnar, musculocutaneous). Aspiration and injection | | | increments of 5 ml was performed. Patient tolerated the procedure | | | well. Site cleaned and covered. Mepivicaine 1% 25 ml and | | | Bupivicaine 0.5% plain 25 ml single setup axillary block | | | Please see anesthesia record or flowsheet for vital sign | | | documentation and see anesthesia record or MAR for additional | | | medication documentation. Performing provider: Parker Jordan MD | | | Authorizing provider: Parker Jordan MD Political Scientist: Antionette KITCHEN | | | | | + + + from Last 3 Months Insurance + +--------+ +--------+ +---------+------+ | Payer | Benefi | Subscriber | Effect | Phone | Address | Type | | | t Plan | ID | naun | | | | | | / | | Dates | | | | | | Group | | | | | | + +--------+ +--------+ +---------+------+ | [employer] | [employer] | [id number] | 08/06/ | [phone] | | PPO | | | [employer]IG[employer] | | 2019-P | 2 | | | | | PPO | | resent | | | | + +--------+ +--------+ +---------+------+ + +--------+ +--------+ + + | Guarantor Name | Accoun | Relation to | Date | Phone | Billing Address | | | t Type | Patient | of | | | | | | | | | | + +--------+ +--------+ + + | Skylar Baum | Person | Self | [birth year] | [address] | | | al/Eduardo | | 1960 | [phone] | [place] [address] | | | axel | | | 9 (Home) | | + +--------+ +--------+ + + Advance Directives + + + + + | Type | Date Recorded | Patient | Explanation | | | | Communication Manager | | + + + + + | Power of | | | | | Research Physiologist | | | | + + + + + | Advance | | | | | Directive | | | | + + + + +
--- OUTSIDE RECORDS SUMMARY | ~2020-02-02 | XMS | Encounter Summary ---
Demographics + + + | Address | [address] | | | [place] [address] | + + + | Home Phone | | + + + | Preferred Language | Unknown | + + + | Marital Status | | + + + | Orthodox Affiliation | 1041 | + + + | Race | Unknown | + + + | Ethnic Group | Unknown | + + + Author + + + | Author | [facility] | | | and Ashishana | + + + | Organization | [facility] | | | and Ashishana [...] Team Providers + +------+ + | Care Back Tender Cylinder Name | Role | Phone | + +------+ + | No, Physician | PCP | Unavailable | + +------+ + Encounter Details +--------+ + + + + | Date | Type | Department | Care Team | Description | +--------+ + + + + | 11/04/ | Hospital | [facility] | Parker Jordan MD | | | 2020 | Encounter | [facility] | [address] | | | | | [address] | [place] [address] | | | | | OP [address] | [phone] | | | | | [place], [place] | | | | | | [address] | | | | | | [phone] | | | +--------+ + + + [...] + + documented as of this encounter Medications at Time of Discharge [...] tablet by | 24 | 0 | 11/04/19 | | | (ZOFRAN ODT) 4 mg | mouth every 8 hours | tablet | | 20 | | | disintegrating | as needed for | | | | | | tablet | Nausea. | | | | | + + + +---------+ + + | ondansetron | Take 1 tablet by | 24 | 0 | 11/04/19 | | | (ZOFRAN ODT) 4 mg | mouth every 8 hours | tablet | | 20 | | | disintegrating | as needed for | | | | | | tablet | Nausea. | | | | | + + + +---------+ + + documented as of this encounter Plan of Treatment + +---------+--------+ + + | Name | Type | Priori | Associated Diagnoses | Date/Time | | | | ty | | | + +---------+--------+ + + | STORED IMAGE | Imaging | Routin | | 11/04/2019 3:41 PM | | ANESTHESIA | | e | | PST | + +---------+--------+ + + documented as of this encounter Visit Diagnoses Not on filedocumented in this encounter"
--- OUTSIDE RECORDS SUMMARY | ~2020-02-02 | XMS | Encounter Summary ---
Demographics + + + | Address | [address] | | | [place] [address] | + + + | Home Phone | | + + + | Preferred Language | Unknown | + + + | Marital Status | | + + + | Pentecostalism Affiliation | 1041 | + + + | Race | Unknown | + + + | Ethnic Group | Unknown | + + + Author + + + | Author | [facility] | | | and Ashishana | + + + | Organization | [facility] | | | and Ashishana [...] Team Providers + +------+ + | Care Treatment Technician Name | Role | Phone | + [...] | | | | Procedures | | [facility], | | | | | [place] | | [place] [address] | | | | | FASCIECTOMY | | Phone: | | | | | RIGHT INDEX | | [phone] | | | | | AND RING | | Fax: | | | | | FINGER | | [phone] | | | | | DUPUYTRENS | | | | | | | FASCIECTOMY | | | +--------+--------+ + + + + Encounter Details +--------+---------+ + + + | Date | Type | Department | Care Team | Description | +--------+---------+ + + + | 11/04/ | Surgery | [facility] | Nahid Guevara, | RIGHT INDEX AND RING | | 2019 | | [facility] | MD Nakul AHUJA | FINGER DUPUYTRENS | | | | OPAL ASC INTRA | [place] [address] | FASCIECTOMY | | | | [address] | [phone] | | | | | [place], [place] | | | | | | [address] | | | | | | [phone] | | | +--------+---------+ + + + [...] Nahid Guevara MD - 11/04/2019 12:30 PM [facility] Same Day Surgery: Brief Post Op Discharge Note Post Procedure Discharge Note; See Operative Note for details Skylar Baum Age/Gender 59 y.o. female Location [facility] OPAL ASC INTRA OP Attending No att. providers found Hosp Day # 0 PCP No Physician on file Discharge Date: 11/04/2019 Hospital Problem List: Principal Problem: Dupuytren contracture Final Diagnosis: ANDREA OPAL ASC Pt. Name/Age/: Skylar Baum 59 y.o. 1960 Med. Record Number: [id number] Date of admission: 11/04/2019 Date of Operation/Procedure: 11/04/2019 Pre-operative Diagnosis: Right index finger Dupuytren's disease Right ring finger Dupuytren's disease Post-operative Diagnosis: same Procedure(s): 1. Right index finger fasciectomy, CPT 83352 2. Right ring finger fasciectomy, CPT 78153 Surgeon: Nahid Guevara MD Engineer Internship(s): None Anesthesia:, General mask inhalational anesthesia and [...] pain or shortness of breath please call [phone] If you need the doctor after hours or on the weekends, please refer to the phone number [facility]. For [address] [facility] offices located on [address] [facility] and on [address] [facility] please call . This will take you [...] tablet by | 10 | 0 | 20 | | | HYDROcodone-acetamin | mouth every 4 hours | tablet | | 20 | | | ophen (NORCO) 5-325 | as needed. | | | | | | mg per tablet | | | | | | + + + +---------+ + + | | Take 1 tablet by | 10 | 0 | 20 | | | HYDROcodone-acetamin | mouth every [...]
--- OUTSIDE RECORDS SUMMARY | ~2020-02-02 | XMS | Encounter Summary ---
Demographics + + + | Address | [address] | | | [place] [address] | + + + | Home Phone | | + + + | Preferred Language | Unknown | + + + | Marital Status | | + + + | Cheondoism Affiliation | 1041 | + + + | Race | Unknown | + + + | Ethnic Group | Unknown | + + + Author + + + | Author | [facility] | | | and Ashishana | + + + | Organization | [facility] | | | and Ashishana | [...] Team Providers + +------+ + | Care Safe And Vault Service Mechanic Name | Role | Phone | + +------+ + | No, Physician | PCP | Unavailable | + +------+ + Encounter Details +--------+ + + + + | Date | Type | Department | Care Team | Description | +--------+ + + + + | 11/04/ | Hospital | [facility] | Parker Jordan MD | | | 2020 | Encounter | [facility] | [address] | | | | | [address] | [place] [address] | | | | | OP [address] | [phone] | | | | | [place], [place] | | | | | | [address] | | | | | | [phone] | | | +--------+ + + + [...]
--- OUTSIDE RECORDS SUMMARY | ~2020-02-02 | XMS | Encounter Summary ---
Demographics + + + | Address | [address] | | | [place] [address] | + + + | Home Phone | | + + + | Preferred Language | Unknown | + + + | Marital Status | | + + + | Druze Affiliation | 1041 | + + + | Race | Unknown | + + + | Ethnic Group | Unknown | + + + Author + + + | Author | [facility] | | | and Ashishana | + + + | Organization | [facility] | | | and Ashishana [...] Team Providers + +------+ + | Care Traveling Sales Representative Name | Role | Phone | [...] | | | | Procedures | | [facility], | | | | | [place] | | [place] [address] | | | | | FASCIECTOMY | | Phone: | | | | | RIGHT INDEX | | [phone] | | | | | AND RING | | Fax: | | | | | FINGER | | [phone] | | | | | DUPUYTRENS | | | | | | | FASCIECTOMY | | | +--------+--------+ + + + + Encounter Details +--------+ + + + + | Date | Type | Department | Care Team | Description | +--------+ + + + + | 11/04/ | Hospital | [facility] | | Ravi | | 2020 | [facility] | [facility] | | contracture | | | | OPAL ASC INTRA | | | | | | [address] | | | | | | [place], [place] | | | | | | [address] | | | | | | [phone] | | | +--------+ + + + [...] Nahid Guevara MD - 11/04/2019 12:30 PM [facility] Same Day Surgery: Brief Post Op Discharge Note Post Procedure Discharge Note; See Operative Note for details Skylar Baum Age/Gender 59 y.o. female Location [facility] OPAL ASC INTRA OP Attending No att. providers found Hosp Day # 0 PCP No Physician on file Discharge Date: 11/04/2019 Hospital Problem List: Principal Problem: Dupuytren contracture Final Diagnosis: ANDREA OPAL ASC Pt. Name/Age/: Skylar Baum 59 y.o. 1960 Med. Record Number: [id number] Date of admission: 11/04/2019 Date of Operation/Procedure: 11/04/2019 Pre-operative Diagnosis: Right index finger Dupuytren's disease Right ring finger Dupuytren's disease Post-operative Diagnosis: same Procedure(s): 1. Right index finger fasciectomy, CPT 33627 2. Right ring finger fasciectomy, CPT 88085 Surgeon: Nahid Guevara MD Police Reserves Commander(s): None Anesthesia:, General mask inhalational anesthesia and [...] to the phone number bel [facility]. For [facility] offices located on [address] [facility] and on [address] [place] [address] please call . This will take you [...]
--- OUTSIDE RECORDS SUMMARY | ~2020-02-02 | XMS | Encounter Summary ---
Demographics + + + | Address | [address] | | | [place] [address] | + + + | Home Phone | | + + + | Preferred Language | Unknown | + + + | Marital Status | | + + + | Jehovah'S Witness Affiliation | 1041 | + + + | Race | Unknown | + + + | Ethnic Group | Unknown | + + + Author + + + | Author | [facility] | | | and Ashishana | + + + | Organization | [facility] | | | and Ashishana [...] Team Providers + +------+ + | Care Management Assistant Name | Role | Phone | + +------+ + | No, Physician | PCP | Unavailable | + +------+ + Encounter Details +--------+ + + + + | Date | Type | Department | Care Team | Description | +--------+ + + + + | 10/28/ | Preadmit | [facility] | | | | 2019 | Visit | [facility] | | | | | | [address] | | | | | | [facility] | | | | | | [address] | | | | | | [place] | | | | | | [address] | | | | | | [phone] | | | +--------+ + + + [...]
--- OUTSIDE RECORDS SUMMARY | ~2020-02-02 | XMS | Encounter Summary ---
Demographics + + + | Address | [address] | | | [place] [address] | + + + | Home Phone | | + + + | Preferred Language | Unknown | + + + | Marital Status | | + + + | Church Affiliation | 1041 | + + + | Race | Unknown | + + + | Ethnic Group | Unknown | + + + Author + + + | Author | [facility] | | | and Ashishana | + + + | Organization | [facility] | | | and [...] Team Providers + +------+ + | Care Ornament Setter Name | Role | Phone | + +------+ + | No, Physician | PCP | Unavailable | + +------+ + Encounter Details +--------+ + + + + | Date | Type | Department | Care Team | Description | +--------+ + + + + | 11/04/ | Anesthesia | [facility] | Parker Jordan MD | | | 2020 | Event | [facility] | [address] | | | | | [address] | [place] [address] | | | | | [address] | [phone] | | | | | [place], [place] | | | | | | [address] | | | | | | [phone] | | | +--------+ + + + + Anesthesia Record + + + + + | Procedure Name | Responsible | Anesthesia Start | Anesthesia Stop Time | | | Anesthesiologist | Time | | + + + + + | RIGHT INDEX AND RING | Parker Jordan MD | 11/04/19 1332 | 11/04/19 1359 | | FINGER DUPUYTRENS | | | | | FASCIECTOMY (Right | | | | | Hand) | | | | + + + + + +----+---+ + + | Da | T | Event | Comment | | te | i | | | | | m | | | | | e | | | +----+---+ + + | 01 | 1 | | | | /2 | 3 | | | | 8/ | 1 | | | | 20 | 9 | | | | 20 | | | | +----+---+ + + | | 1 | An Checkout | Pre-use anesthesia machine/equipment checkout. | | | 3 | | | | | 3 | | | | | 0 | | | +----+---+ + + | | 1 | An Start | Reassessment prior to anesthesia induction/procedure. | | | 3 | | | | | 3 | | | | | 2 | | | +----+---+ + + | | 1 | Preoxygenat | | | | 3 | ed | | | | 3 | | | | | 4 | | | +----+---+ + + | | 1 | An | | | | 3 | Induction | | | | 3 | | | | | 8 | | | +----+---+ + + | | 1 | An Tourn | | | | 3 | Inflated | | | | 4 | | | | | 0 | | | +----+---+ + + | | 1 | An Tourn | | | | 3 | Deflated | | | | 5 | | | | | 6 | | | +----+---+ + + | | 1 | An Stop | Patient handed off to recovery nurse. | | | 5 | | | | | 9 | | | +----+---+ + + +------+ | Meds | +------+ + +--------+ | Name | Total | + +--------+ | mepivacaine (PF) (POLOCAINE) 1 % | 25 mL | | injection SOLN 25 mL | | + +--------+ | bupivacaine (PF) (MARCAINE) 0.5% | 25 mL | | injection 25 mL | | + +--------+ | lidocaine 1% | 40 mg | + +--------+ | ceFAZolin in dextrose (ANCEF) | 2 g | | IVPB 2 g | | + +--------+ | propofol | 150 mg | + +--------+ | LR bolus | 250 mL | + +--------+ + + | Name | + + | Insp O2 | + + | Exp N2O | + + | Secondary O2 Flow Rate | + + + + | No blood administrations on file. | + + +--------+ + + + | Type | Details | Placement | Removal | +--------+ + + + | Periph | 11/04/19; 1315; Left; Wrist; | 11/04/19 1315 by | 11/04/19 1410 by | | eral | [id number] catheter system; | Antionette Gusman RN | Kelsea Monroy, | | IV | 22 gauge; distraction, | | RN | | | intradermal injection, tolerated | | | | | well; removed per | | | | | policy/procedure, catheter/device | | | | | intact; 11/04/19; 1410 | | | +--------+ + + + | Wound | 11/04/19; 1345; Incision; Right; | 11/04/19 1345 by | 11/04/19 1426 by | | | hand; 11/04/19; 1426 | Prem Dotson RN | Kelsea Monroy, | | | | | RN | +--------+ + + + documented in this encounter Social History + +-------+ +--------+------+ | Tobacco [...] Not on filedocumented as of this encounter Procedures + +--------+ [...] section. | + +--------+ + + + documented in this encounter Results Nerve Block (11/04/2019 1:32 PM PST) [...] was stored on patient's file using the [employer] | | | system. Ultrasound was used [...] | | Authorizing provider: Parker Jordan MD Continuous Improvement Intern: Antionette KITCHEN | | | | | + + + documented in this encounter Visit Diagnoses Not on filedocumented in this encounter Administered Medications + +--------+ +--------+------+------+ | Medication Order | MAR | Action | Dose | Rate | Site | | | Action | Date | | | | + +--------+ +--------+------+------+ | bupivacaine (PF) (MARCAINE) | Given | 11/04/19 | 25 mLs | | | | 0.5% injection 25 mL 25 mL, | | 20 1:29 | | | | | PERINEURAL, ONCE, 11/04/19 at | | PM PST | | | | | 1315, For 1 dose, For Block, | | | | | | | Pre-op | | | | | | + +--------+ +--------+------+------+ +---+---+ | | | +---+---+ + +-------+ +-----+---+---+ | ceFAZolin in dextrose (ANCEF) | Given | 11/04/19 | 2 g | | | | IVPB 2 g 2 g, Intravenous, | | 20 1:32 | | | | | Administer over 30 Minutes, ONCE, | | PM PST | | | | | 11/04/19 at 1400, For 1 dose, | | | | | | | Pre-op, Indications: Surgical | | | | | | | Prophylaxis | | | | | | + +-------+ +-----+---+---+ +---+---+ | | | +---+---+ + +---------+ +---+---+---+ | lactated ringers (LR) bolus | New Bag | 11/04/19 | | | | | Intravenous, Administer over 2 | | 20 1:32 | | | | | Hours, CONTINUOUS PRN, Starting | | PM PST | | | | | 11/04/19 at 1332, Anesthesia | | | | | | | Intra-op | | | | | | + +---------+ +---+---+---+ +---+---+ | | | +---+---+ + +-------+ +-------+---+---+ | lidocaine (PF) 1% injection | Given | 11/04/19 | 30 mg | | | | Intravenous, PRN, Starting Tue | | 20 1:38 | | | | | 11/04/19 at 1324, Anesthesia | | PM PST | | | | | Intra-op | | | | | | + +-------+ +-------+---+---+ +-------+ +-------+---+---+ | Given | 11/04/19 | 10 mg | | | | | 20 1:24 | | | | | | PM PST | | | | +-------+ +-------+---+---+ +---+---+ | | | +---+---+ + +-------+ +--------+---+---+ | mepivacaine (PF) (POLOCAINE) 1 | Given | 11/04/19 | 25 mLs | | | | % injection SOLN 25 mL 25 mL, | | 20 1:29 | | | | | Other, ONCE, 11/04/19 at 1315, | | PM PST | | | | | For 1 dose, For preop block, | | | | | | | Pre-op | | | | | | + +-------+ +--------+---+---+ +---+---+ | | | +---+---+ + +-------+ +-------+---+---+ | propofol (DIPRIVAN) injection | Given | 11/04/19 | 10 mg | | | | Intravenous, PRN, Starting Tue | | 20 1:51 | | | | | 11/04/19 at 1338, Anesthesia | | PM PST | | | | | Intra-op | | | | | | + +-------+ +-------+---+---+ +-------+ +-------+---+---+ | Given | 11/04/19 | 10 mg | | | | | 20 1:49 | | | | | | PM PST | | | | +-------+ +-------+---+---+ | Given | 11/04/19 | 10 mg | | | | | 20 1:47 | | | | | | PM PST | | | | +-------+ +-------+---+---+ +---+---+ | | | +---+---+ documented in this encounter"
--- OUTSIDE RECORDS SUMMARY | ~2020-02-02 | XMS | Encounter Summary ---
Demographics + + + | Address | [address] | | | [place] [address] | + + + | Home Phone | | + + + | Preferred Language | Unknown | + + + | Marital Status | | + + + | Christianity Affiliation | 1041 | + + + | Race | Unknown | + + + | Ethnic Group | Unknown | + + + Author + + + | Author | [facility] | | | and Ashishana | + + + | Organization | [facility] | | | and Ashishana [...] Team Providers + +------+ + | Care Shoe Repairer Apprentice Name | Role | Phone | + +------+ + | No, Physician | PCP | Unavailable | + +------+ + Encounter Details +--------+ + + + + | Date | Type | Department | Care Team | Description | +--------+ + + + + | 11/04/ | Anesthesia | [facility] | Parker Jordan MD | | | 2020 | Event | [facility] | [address] | | | | | [address] | [place] [address] | | | | | [address] | [phone] | | | | | [place], [place] | | | | | | [address] | | | | | | [phone] | | | +--------+ + + + [...] 11/04/19 1410 by | | eral | [id number] catheter system; | Antionette Gusman RN | [...] was stored on patient's file using the [employer] | | | system. Ultrasound was used [...] | | Authorizing provider: Parker Jordan MD Developmental Mathematics Instructor: Antionette KITCHEN | | | | | [...]
--- OUTSIDE RECORDS SUMMARY | ~2020-02-02 | XMS | Encounter Summary ---
Demographics + + + | Address | [address] | | | [place] [address] | + + + | Home Phone | | + + + | Preferred Language | Unknown | + + + | Marital Status | | + + + | Quaker Affiliation | 1041 | + + + | Race | Unknown | + + + | Ethnic Group | Unknown | + + + Author + + + | Author | [facility] | | | and Ashishana | + + + | Organization | [facility] | | | and [...] Team Providers + +------+ + | Care Rotary Driller Prospecting Name | Role | Phone | + [...] | | | | Procedures | | [facility], | | | | | [place] | | [place] [address] | | | | | FASCIECTOMY | | Phone: | | | | | RIGHT INDEX | | [phone] | | | | | AND RING | | Fax: | | | | | FINGER | | [phone] | | | | | DUPUYTRENS | | | | | | | FASCIECTOMY | | | +--------+--------+ + + + + Encounter Details +--------+---------+ + + + | Date | Type | Department | Care Team | Description | +--------+---------+ + + + | 11/04/ | Surgery | [facility] | Nahid Guevara, | RIGHT INDEX AND RING | | 2019 | | [facility] | MD Nakul AHUJA | FINGER DUPUYTRENS | | | | OPAL ASC INTRA | [place] [address] | FASCIECTOMY | | | | [address] | [phone] | | | | | [place], [place] | | | | | | [address] | | | | | | [phone] | | | +--------+---------+ + + + [...] Nahid Guevara MD - 11/04/2019 12:30 PM [facility] Same Day Surgery: Brief Post Op Discharge Note Post Procedure Discharge Note; See Operative Note for details Skylar Baum Age/Gender 59 y.o. female Location [facility] OP Attending No att. providers found Hosp Day # 0 PCP No Physician on file Discharge Date: 11/04/2019 Hospital Problem List: Principal Problem: Dupuytren contracture Final Diagnosis: [facility] Pt. Name/Age/: Skylar Baum 59 y.o. 1960 Med. Record Number: [id number] Date of admission: 11/04/2019 Date of Operation/Procedure: 11/04/2019 Pre-operative Diagnosis: Right index finger Dupuytren's disease Right ring finger Dupuytren's disease Post-operative Diagnosis: same Procedure(s): 1. Right index finger fasciectomy, CPT 61167 2. Right ring finger fasciectomy, CPT 88975 Surgeon: Nahid Guevara MD Tugboat Captain(s): None Anesthesia:, General mask inhalational anesthesia and [...] weekends, please refer to the phone number [facility]. For [facility] offices located on [address] and on [address] [facility] please call . This will take you [...]
--- OUTSIDE RECORDS SUMMARY | ~2020-02-02 | XMS | Clinical Summary ---
Demographics + + + | Address | [address] | | | [place] [address] | + + + | Home Phone | | + + + | Preferred Language | Unknown | + + + | Marital Status | | + + + | Advent Affiliation | 1041 | + + + | Race | Unknown | + + + | Ethnic Group | Unknown | + + + Author + + + | Author | [facility] | | | and Ashishana | + + + | Organization | [facility] | | | and Ashishana [...] Team Providers + +------+ + | Care Exercise Scientist Name | Role | Phone | + [...] automatically from request for surgery | | [id number] | + + Encounters +--------+ + + [...] was stored on patient's file using the [employer] | | | system. Ultrasound was used [...] | | Authorizing provider: Parker Jordan MD Press Hand Supervisor: Antionette KITCHEN | | | | | [...] +---------+------+ | [employer] COMM | [employer] | [id number] | 08/06/ | [phone] | | PPO | | | [employer] [...] Person | Self | [birth year] | [address] | | | al/Eduardo | | 1960 | [phone] | [place] [address] | | | axel | | | 9 (Home) | | + +--------+ +--------+ + + Advance Directives + + + + + | Type | Date Recorded | Patient | Explanation | | | | Direct Marketing Coordinator | | + + + + + | Power of | | | | | Chief Technical Officer | | | | + + + + + | Advance | | | | | Directive | | | | + + + + +
[~2020-02-02 08:38] MED LIST: VITAMIN D50000 UNI1 PO
== END 2020-02-02 09:50 | disposition home or self-care (01) ==
LOC: ED 08:38
DX: S63.502A Unspecified sprain of left wrist, initial encounter (principal); Z88.2 Allergy status to sulfonamides; Z79.899 Other long term (current) drug therapy; W01.0XXA Fall on same level from slipping, tripping and stumbling without subsequent striking against object, initial encounter
CPT/HCPCS: 73110; 99283-25

== ENCOUNTER 2024-10-15 12:20 | Day surgery (SDC) | payer MEDICARE ==
[2024-10-09 16:51] VITALS: BP 125/82
[~2024-10-15] VITALS: Ht 162.6 cm; Wt 76.0 kg
[~2024-10-15 12:20] MED LIST changes: +IBLOOD GLUCOSE TEST STRIP 1 EA TEST VI PRN; +LACTATED RINGER'S 1,000 ML IV SCH; +LIDOCAINE HCL 1% 5 ML SDV INJ ONE
[2024-10-15 12:34] VITALS: BP 121/66
[2024-10-15] MEDS ORDERED: propofoL 200 MG/20 ML VIAL ONE (12:38)
[2024-10-15] MEDS ORDERED: LACTATED RINGER'S 1,000 ML IV ONE (13:21)
--- NOTE | 2024-10-15 13:35 | NUR ---
10/15/24 1335 Jenn Yun PT TO PACU SLEEPING ORAL AIRWAY IN PLACE
[2024-10-15 14:03] VITALS: BP 116/73
--- NOTE | 2024-10-15 15:08 | OR ---
[facility] [address] [place], [place] [address] Signed DATE OF OPERATION: 10/15/2024 SURGEON: Umer Marks MD PREOPERATIVE DIAGNOSES: 1. Mother with colon cancer in her 50s. 2. Diverticulosis. 3. Long redundant colon. POSTOPERATIVE DIAGNOSES: 1. 4 mm polyp at 5 cm in rectum. 2. 4 mm polyp at 3 cm in rectum. 3. Tortuous sigmoid colon. 4. Left-sided diverticulosis. 5. Internal anal skin tag x1. PROCEDURE: Colonoscopy with hot biopsy. ESTIMATED BLOOD LOSS: None. INDICATIONS: Chidi is a 64-year-old female who is returning for followup colonoscopy. We know her mother had colon cancer in her 50s. I helped Chidi with her initial colonoscopy in 2013 at age of 53. She had one hyperplastic polyp and just a couple of diverticula in the sigmoid colon. She did well with Versed and fentanyl at that time. She came back in 2019 at age of 58. She had an increase in diverticulosis. We found that she had a long redundant and tortuous colon and was struggling through 7 mg of Versed and 175 mcg of fentanyl. We had to use abdominal compression just to get around the hepatic flexure and into the cecum. Consequently, we recommended she have monitored anesthesia care with propofol infusion for future colonoscopies. She also has a very full round flat face. She told me she snores quite a bit, but she has never been evaluated for sleep apnea. She also told me she avoids doctors whenever possible. I encouraged her to meet with her primary care provider once a year. She tells me there are no lower GI complaints currently. She stays in good shape and continues to golf several times a week in her [place]. In the office I had given her a pamphlet on colonoscopy. She recalls the nature of the test. There is risk including, but not limited to gas bloating, crampy abdominal pain, bleeding, perforation requiring surgery, and missed diagnosis. We also reviewed the written instructions for the bowel prep line by line. Electronically Signed By: UMER MARKS MD 10/15/24 1508 PATIENT NAME: CHIDI IBANEZ OPERATIVE REPORT DATE OF : 58 REPORT #: [id number] PHYSICIAN: UMER MARKS MD PCP: JO-ANN MAYO DO REPORT IS CONFIDENTIAL AND NOT TO BE RELEASED WITHOUT AUTHORIZATION [facility] [address] [place], [place] [address] Signed She is very familiar with our bowel prep at this time. I also reviewed the need for monitored anesthesia care. She understands an adult person has to take her home. Usually that is her . She had expressed understanding and wished to proceed. DESCRIPTION OF PROCEDURE: Chidi was taken into our endoscopy suite and placed in the left lateral decubitus position. She was given monitored anesthesia care with propofol infusion. A digital rectal exam was performed and this was unremarkable. There were no external hemorrhoids. No masses noted. She has good sphincter tone. The adult colonoscope was introduced and advanced under direct visualization of camera. Once again, we found a very difficult tortuous sigmoid colon. It was better as we got in the left colon. It was much better passing the scope this occasion with propofol infusion. We did use some abdominal compression. We got the scope down into the cecum fairly readily. Her prep was quite excellent. We could easily see the appendiceal orifice and ileocecal valve. The scope was slowly withdrawn. We saw diverticula in the left and sigmoid colon. They were moderate in size, few to moderate in number and scattered about. In the rectum, we took out the two polyps as mentioned above. Upon retroflexion of scope we could see a single internal anal skin tag. It is only about 4 mm or so in size. After this, the gas was suctioned out, colonoscope removed. Chidi tolerated the procedure quite well. RECOMMENDATIONS: I will see Chidi back in my office in 7 to 14 days to review her results. I suspect she will stay on the five year plan due to her mother's history. She will always need monitored anesthesia care with propofol infusion in the future given her difficult sigmoid colon. Umer Marks MD ALB/MODL /[id number] cc: DO Umer Kulkarni MD Electronically Signed By: UMER MARKS MD 10/15/24 1508 PATIENT NAME: CHIDI IBANEZ OPERATIVE REPORT DATE OF : 58 REPORT #: [id number] PHYSICIAN: UMER MARKS MD PCP: JO-ANN MAYO DO REPORT IS CONFIDENTIAL AND NOT TO BE RELEASED WITHOUT AUTHORIZATION [address] [address] Signed Copies: JO-ANN MAYO ANDREW L MD ~ Electronically Signed By: UMER MARKS MD 10/15/24 1508 PATIENT NAME: CHIDI IBANEZ OPERATIVE REPORT DATE OF : 58 REPORT #: [id number] PHYSICIAN: UMER MARKS MD PCP: JO-ANN MAYO DO REPORT IS CONFIDENTIAL AND NOT TO BE RELEASED WITHOUT AUTHORIZATION
--- NOTE | 2024-10-17 18:08 | PATH ---
[facility] [address] [facility] [place], [place] [address] Signed SPECIMEN(S): A RECTAL POLYP AT 5 CM SPECIMEN(S): B RECTAL POLYP AT 3 CM SPECIMEN SOURCE: A. RECTAL POLYP AT 5 CM B. RECTAL POLYP AT 3 CM CLINICAL HISTORY: History of polyps. Postop: Diverticulosis, internal anal skin tag, rectal polyps, tortuous colon. FINAL PATHOLOGIC DIAGNOSIS: A. Rectal polyp at 5 cm: - Hyperplastic polyp (one fragment). B. Recta polyp at 3 cm: - Hyperplastic polyp (one fragment). JVR:cml MICROSCOPIC EXAMINATION: Histologic sections of all submitted blocks are examined by light microscopy. These findings, together with the gross examination, support the pathologic diagnosis. GROSS DESCRIPTION: A. The specimen, labeled and designated "Dillavou, L, rectal polyp at 5 cm," is received in formalin and consists of one lerma soft tissue fragment, 0.3 cm. Entirely submitted in (A1). B. The specimen, labeled and designated "Dillavou, L, rectal polyp at 3 cm," is received in formalin and consists of one lerma soft tissue fragment, 0.4 cm. Entirely submitted in (B1). AB (under the direct supervision of a pathologist) The Gross Description was prepared using a voice recognition system. The report was reviewed for accuracy; however, sound-alike word errors, addition and/or deletions may occur. If there is any question about this report, please contact Client Services. PERFORMING LABORATORY: Technical component was performed by [facility], [address] [place] [id number] (CLIA# [id number]). Professional interpretation was performed by [facility], [address] [place] [id number] (CLIA#: [id number]). PATIENT NAME: CHIDI IBANEZ PATHOLOGY DATE OF : 58 REPORT #: [id number] PHYSICIAN: MICHAEL PATHOLOGY PCP: JO-ANN MAYO DO REPORT IS CONFIDENTIAL AND NOT TO BE RELEASED WITHOUT AUTHORIZATION [address] [place] [address] Signed Diagnostician: Maximino Gilliam MD Pathologist Electronically Signed 10/17/2024 Copies: ~ PATIENT NAME: CHIDI IBANEZ PATHOLOGY DATE OF : 58 REPORT #: [id number] PHYSICIAN: MICHAEL PATHOLOGY PCP: JO-ANN MAYO DO REPORT IS CONFIDENTIAL AND NOT TO BE RELEASED WITHOUT AUTHORIZATION
== END 2024-10-15 14:10 | disposition home or self-care (01) ==
LOC: DS 12:20 → OPS 12:20 → DS 13:10 → OPS 13:10 → DS 13:45 → OPS 14:10 → DS 14:30
PROVIDERS: ATTEND Colon & Rectal Surgery
PROC: 0DBP8ZX Excision of Rectum, Via Natural or Artificial Opening Endoscopic, Diagnostic (ICD-10-PCS; principal; 2024-10-15 13:10)
DX: K62.1 Rectal polyp (principal); K63.89 Other specified diseases of intestine; K57.30 Diverticulosis of large intestine without perforation or abscess without bleeding; E55.9 Vitamin D deficiency, unspecified; E01.0 Iodine-deficiency related diffuse (endemic) goiter; Z80.0 Family history of malignant neoplasm of digestive organs; Z86.0100 Personal history of colon polyps, unspecified
CPT/HCPCS: 00811; 88305; J2704; J7121